=== PATIENT | female | born 1995 | race Hispanic/Latino ===

== ENCOUNTER 2017-11-08 02:42 | Emergency (ER) | payer MEDICAID ==
[2017-11-08 03:01] VITALS: RESP 18; TEMP 98.1
--- NOTE | 2017-11-08 03:32 | ED PDOC ---
Arrival/HPI - General Chief Complaint: Female Genitourinary Time Seen by Provider: 11/08/17 03:01 Historian: Patient - History of Present Illness Narrative History of Present Illness (Text): 11/08/17 03:10 22 year old female, with no significant past medical history, presents to the emergency department complaining of vaginal bleeding that began tonight. Patient reports she is only spotting. Patient is 6 weeks and has an appointment with her [employer] EXECUTIVE in 4 days. Patient reports abdominal discomfort for the past week and lower back pain, but denies any fever, chills, chest pain, shortness of breath, nausea, vomiting, diarrhea, urinary symptoms, neck pain, headache, dizziness, or any other complaints. Time/Duration: Other (tonight) Symptom Onset: Sudden Symptom Course: Unchanged Activities at Onset: Light Context: Home Past Medical History - Provider Review Nursing Documentation Reviewed: Yes - Infectious Disease Hx of Infectious Diseases: None - Cardiac Hx Cardiac Disorders: No - Pulmonary Hx Respiratory Disorders: No - Neurological Hx Neurological Disorder: No - HEENT Hx HEENT Disorder: No - Renal Hx Renal Disorder: No - Endocrine/Metabolic Hx Endocrine Disorders: No - Hematological/Oncological Hx Blood Disorders: No - Integumentary Hx Dermatological Disorder: No - Musculoskeletal/Rheumatological Hx Musculoskeletal Disorders: No - Gastrointestinal Hx Gastrointestinal Disorders: No - Genitourinary/Gynecological Hx Genitourinary Disorders: No - Psychiatric Hx Psychophysiologic Disorder: No Hx Substance Use: No - Surgical History Other/Comment: gastric sleeve - Anesthesia Hx Anesthesia: Yes Hx Anesthesia Reactions: No Hx Malignant Hyperthermia: No Family/Social History - Physician Review Nursing Documentation Reviewed: Yes Family/Social History: No Known Family HX Smoking Status: Never Smoked Hx Alcohol Use: Yes Frequency of alcohol use: Socially Hx Substance Use: No Allergies/Home Meds Allergies/Adverse Reactions: Allergies magnesium Allergy (Verified 11/08/17 03:04) ANAPHYLAXIS Review of Systems - Physician Review All systems were reviewed & negative as marked: Yes - Review of Systems Constitutional: absent: Fevers, Other (Chills) Respiratory: absent: SOB Cardiovascular: absent: Chest Pain Gastrointestinal: Abdominal Pain. absent: Diarrhea, Nausea, Vomiting Genitourinary Female: Vaginal Bleeding. absent: Dysuria, Frequency, Hematuria Musculoskeletal: Back Pain. absent: Neck Pain Neurological: absent: Headache, Dizziness Physical Exam Vital Signs Reviewed: Yes Vital Signs Temp Pulse Resp BP Pulse Ox 11/08/17 03:00 98.1 F 83 18 133/92 H 100 Temperature: Afebrile Blood Pressure: Normal Pulse: Regular Respiratory Rate: Normal Appearance: Positive for: Well-Appearing, Non-Toxic, Comfortable Pain Distress: None Mental Status: Positive for: Alert and Oriented X 3 - Systems Exam Head: Present: Atraumatic, Normocephalic Pupils: Present: PERRL Extroacular Muscles: Present: EOMI Conjunctiva: Present: Normal Mouth: Present: Moist Mucous Membranes Neck: Present: Normal Range of Motion Respiratory/Chest: Present: Clear to Auscultation, Good Air Exchange. No: Respiratory Distress, Accessory Muscle Use Cardiovascular: Present: Regular Rate and Rhythm, Normal S1, S2. No: Murmurs Abdomen: No: Tenderness, Distention, Peritoneal Signs Back: Present: Normal Inspection Upper Extremity: Present: Normal Inspection. No: Cyanosis, Edema Lower Extremity: Present: Normal Inspection. No: Edema Neurological: Present: GCS=15, CN II-XII Intact, Speech Normal Skin: Present: Warm, Dry, Normal Color. No: Rashes Psychiatric: Present: Alert, Oriented x 3, Normal Insight, Normal Concentration Medical Decision Making ED Course and Treatment: 11/08/17 03:10 Impression: 22 year old female presents complaining of vaginal spotting that began tonight associated with abdominal discomfort for the past week and lower back pain. Plan: -- labs -- HCG, Qualit. Urine, Urinalysis -- OB Transvaginal US -- Reassess and disposition Progress Notes: EXAM: US , Transvaginal Complete ultrasound ovaries duplex/Doppler arterial and venous Dictated and Authenticated by: Belen Coon MD 11/08/2017 5:26 AM IMPRESSION: 1. There is right ovarian corpus luteum measuring 1.5 x 2.9 x 1.8 cm 2. Intrauterine gestational sac with yolk sac. Follow-up examination is advised to document viability of the fetus. 11/08/17 06:25 case discussed with obgyn dr jacobson, recommends outpt fu suspet early preg 11/08/17 06:43 refuses pelvic exam. rh status pending. - Lab Interpretations Lab Results: 11/08/17 03:25 11/08/17 05:15 Lab Results 11/08/17 06:05: Blood Type Pending, Antibody Screen Pending, BBK History Checked No verified bt 11/08/17 05:15: Sodium 141, Potassium 3.7, Chloride 105, Carbon Dioxide 21, Anion Gap 19, BUN 11, Creatinine 0.6 L, Est GFR ( Amer) > 60, Est GFR ( Non-Af Amer) > 60, Random Glucose 82, Calcium 9.4, Total Bilirubin 0.5, AST 24, ALT 24, Alkaline Phosphatase 55, Total Protein 7.6, Albumin 4.4, Globulin 3.2, Albumin/Globulin Ratio 1.4 11/08/17 05:15: Urine Color Light yellow, Urine Appearance Sl cloudy, Urine pH 6.0, Ur Specific [place] >= 1.030, Urine Protein Trace H, Urine Glucose (UA) Negative, Urine Ketones Trace H, Urine Blood Large H, Urine Nitrate Negative, Urine Bilirubin Negative, Urine Urobilinogen 0.2, Ur Leukocyte Esterase Small H , Urine RBC 2 - 5, Urine WBC 5 - 10, Ur Epithelial Cells 10 - 12, Urine Bacteria Mod, Urine HCG, Qual Positive 11/08/17 04:30: Beta HCG, Quant 2613.80 H 11/08/17 03:25: PT 11.9, INR 1.04, APTT 29.5 11/08/17 03:25: WBC 8.3, RBC 4.61, Hgb 13.6, Hct 39.8, MCV 86.3, MCH 29.5, MCHC 34.2, RDW 13.0, Plt Count 287, MPV 10.3, Gran % 52.6, Lymph % (Auto) 40.1 H, Wirt % (Auto) 6.6 H, Eos % (Auto) 0.6 L, Baso % (Auto) 0.1, Gran # 4.37, Lymph # (Auto) 3.3, Wirt # (Auto) 0.6, Eos # (Auto) 0.1, Baso # (Auto) 0.01 I have reviewed the lab results: Yes - RAD Interpretation Radiology Orders: 11/08/17 03:09 OB TRANSVAGINAL [US] Stat - Scribe Statement The provider has reviewed the documentation as recorded by the Farheen Oliva Provider Scribe Attestation: All medical record entries made by the Scribe were at my direction and personally dictated by me. I have reviewed the chart and agree that the record accurately reflects my personal performance of the history, physical exam, medical decision making, and the department course for this patient. I have also personally directed, reviewed, and agree with the discharge instructions and disposition.\ Disposition/Present on Arrival - Present on Arrival Any Indicators Present on Arrival: No History of DVT/PE: No History of Uncontrolled Diabetes: No Urinary Catheter: No History of Decub. Ulcer: No History Surgical Site Infection Following: None - Disposition Have Diagnosis and Disposition been Completed?: Yes Diagnosis: Threatened miscarriage, UTI (urinary tract infection) Disposition: HOME/ ROUTINE Disposition Time: 01:00 Patient Problems: Current Active Problems Problem Status Onset Threatened miscarriage Acute UTI (urinary tract infection) Acute Condition: STABLE Discharge Instructions (ExitCare): Urinary Tract Infections in Adults, Threatened Miscarriage, Asymptomatic Bacteriuria Additional Instructions: follow up with your doctorclinc, return to er with worsening symptoms or concerns. Prescriptions: Cefpodoxime [Vantin] 100 mg PO BID #14 tab Referrals: [facility] [Outside] - [place] up with [place] [facility] [place] - [facility]] - Follow up with primary Forms: [employer] ([place])
[2017-11-08 03:41] LABS: BASO # 0.01 K/mm3 (0.0-2.0); BASO % 0.1 % (0.0-3.0); EOS # 0.1 (0.0-0.7); EOS % 0.6 % (1.5-5.0); GRAN # 4.37 (1.4-6.5); GRAN % 52.6 % (50.0-68.0); HEMOGLOBIN 13.6 g/dL (12.0-16.0); LYMPH # 3.3 (1.2-3.4); LYMPH % 40.1 % (22.0-35.0); MEAN CELL VOLUME 86.3 fl (80.0-105.0); MEAN CORPUSCULAR HEMOGLOBIN 29.5 pg (25.0-35.0); MEAN CORPUSCULAR HGB CONC 34.2 g/dl (31.0-37.0); MEAN PLATELET VOLUME 10.3 fl (7.0-11.0); MONO # 0.6 (0.1-0.6); MONO % 6.6 % (1.0-6.0); RBC 4.61 10^6/uL (3.5-6.1); WHITE BLOOD COUNT 8.3 10^3/ul (4.5-11.0)
[2017-11-08 03:51] LABS: INR 1.04; PROTHROMBIN TIME 11.9 SECONDS (9.4-12.5)
[2017-11-08 03:54] LABS: PARTIAL THROMBOPLASTIN TIME 29.5 Seconds (25.1-36.5)
[2017-11-08 05:36] LABS: ALB/GLOB RATIO 1.4 (1.1-1.8); ALBUMIN 4.4 g/dL (3.0-4.8); ALT/SGPT 24 U/L (7-56); AST/SGOT 24 U/L (14-36); BLOOD UREA NITROGEN 11 mg/dL (7-21); CALCIUM 9.4 mg/dL (8.4-10.5); GFR AFRICAN-AMERICAN > 60; GFR NON-AFRICAN AMERICAN > 60
[2017-11-08 05:46] LABS: URINE BILIRUBIN NEGATIVE (NEGATIVE); URINE BLOOD LARGE (NEGATIVE); URINE GLUCOSE (UA) NEGATIVE (NEGATIVE); URINE LEUKOCYTE ESTERASE SMALL Leu/uL (NEGATIVE); URINE PROTEIN TRACE mg/dL (<30 mg/dL); URINE UROBILINOGEN 0.2 E.U./dL (<1 E.U./dL)
[2017-11-08 06:03] LABS: HCG,QUALITATIVE URINE POSITIVE (NEGATIVE); URINE APPEARANCE SL CLOUDY (CLEAR); URINE COLOR LIGHT YELLOW (YELLOW)
[2017-11-08 06:17] LABS: URINE BACTERIA MOD (NEG)
[2017-11-08 07:26] VITALS: BP 130/78; PULSE 80; O2SAT 100
--- NOTE | 2017-11-09 09:59 | US ---
Date of service: 11/08/2017 PROCEDURE: OB Pelvic Ultrasound HISTORY: Vaginal bleeding COMPARISON: None available. FINDINGS: UTERUS: Single intrauterine gestational sac too small to estimate age. . Yolk sac is visualized. No pole is identified on the current examination. Uterus measures 7.0 x 3.6 x 4.3 cm. Anteverted, normal in size and appearance. CERVIX: Long and closed. No cervical abnormality seen. RIGHT OVARY: Measures 3.5 x 1.8 x 2.1 cm. No mass. Normal flow. There is a 1.5 x 0.9 x 1.8 cm cyst. LEFT OVARY: Measures 2.7 x 0.9 x 2.2 cm. No mass. Normal flow. FREE FLUID: None. OTHER FINDINGS: None. IMPRESSION: Single intrauterine gestational sac too small to estimate gestational age. Yolk sac is visualized however no pole is identified on the current examination. Clinical and imaging follow-up is recommended to confirm viability. A preliminary report was provided by [facility].
== END 2017-11-08 07:25 | disposition home or self-care (01) ==
LOC: ED 02:42
DX: N39.0 Urinary tract infection, site not specified (principal); O20.0 Threatened abortion; Z3A.01 Less than 8 weeks gestation of pregnancy

== ENCOUNTER 2018-05-04 01:26 | Emergency (ER) | payer MEDICAID | END 2018-05-04 02:52 | disposition left against medical advice (07) | LOC: ED 01:26 | DX: Z02.89 Encounter for other administrative examinations (principal); R10.2 Pelvic and perineal pain ==